=== PATIENT | male | born 1995 | race Caucasian/White ===

== ENCOUNTER 2020-11-16 19:54 | Emergency (ER) | payer OTHER ==
[~2020-11-16] VITALS: Ht 185.4 cm; Wt 90.7 kg
[~2020-11-16 19:54] MED LIST: AUGMENTIN 875-1 EACH PO; KEFLEX500 MG PO; MOTRIN IB200 MG PO; NORCO 5-325 TA1 EACH PO
[2020-11-16] MEDS ORDERED: HYDROCODON-ACE1 EA10 PO (21:25)
[2020-11-16] MEDS ORDERED: CEPHALEXIN500 MG PO (21:25)
== END 2020-11-16 22:25 | disposition home or self-care (01) ==
LOC: ED 19:54
PROC: 3E0T3BZ Introduction of Anesthetic Agent into Peripheral Nerves and Plexi, Percutaneous Approach (ICD-10-PCS; principal; 2020-11-16)
DX: S62.661B Nondisplaced fracture of distal phalanx of left index finger, initial encounter for open fracture (principal); W29.8XXA Contact with other powered hand tools and household machinery, initial encounter; F17.200 Nicotine dependence, unspecified, uncomplicated
CPT/HCPCS: 64450; 73140; 99283-25; J1170

== ENCOUNTER 2021-01-13 13:30 | Emergency (ER) | payer OTHER ==
[~2021-01-13] VITALS: Ht 185.4 cm; Wt 90.7 kg
[~2021-01-13 13:30] MED LIST changes: +CEPHALEXIN500 MG PO; +HYDROCODON-ACE1 EA10 PO
== END 2021-01-13 14:50 | disposition home or self-care (01) ==
LOC: ED 13:30
DX: S51.032A Puncture wound without foreign body of left elbow, initial encounter (principal); W26.0XXA Contact with knife, initial encounter; F17.200 Nicotine dependence, unspecified, uncomplicated
CPT/HCPCS: 99283